=== PATIENT | female | born 1970 | race Caucasian/White ===

== ENCOUNTER → 2018-06-28 12:36 | Outpatient (CLI) | payer OTHER | END | disposition home or self-care (01) | LOC: D.NM 12:36 | DX: R10.9 Unspecified abdominal pain (principal); R11.2 Nausea with vomiting, unspecified ==

== ENCOUNTER → 2018-07-05 12:31 | Outpatient (CLI) | payer OTHER | END | disposition home or self-care (01) | LOC: D.US 12:31 | DX: R22.1 Localized swelling, mass and lump, neck (principal) ==

== ENCOUNTER → 2018-07-13 07:59 | Outpatient (CLI) | payer OTHER | END | disposition home or self-care (01) | LOC: D.CT 07:59 | DX: R22.1 Localized swelling, mass and lump, neck (principal) ==